=== PATIENT | male | born 1965 | race Two or more races ===

== ENCOUNTER 2018-09-20 10:37 | Outpatient (CLI) | payer OTHER ==
[~2018-09-20 10:37] MED LIST: COUMADIN7.5 MG
== END 2018-09-20 10:39 | disposition home or self-care (01) ==
LOC: NUCLEAR 10:37
DX: M81.0 Age-related osteoporosis without current pathological fracture (principal); M54.5 Low back pain

== ENCOUNTER 2019-05-21 09:51 | Outpatient (CLI) | payer OTHER | END 2019-05-21 10:01 | disposition home or self-care (01) | LOC: RAD 09:51 | DX: M54.89 Other dorsalgia (principal) ==

== ENCOUNTER 2020-11-09 08:00 | Outpatient (CLI) | payer OTHER | END 2020-11-09 08:30 | disposition home or self-care (01) | LOC: PPH VACUNA 08:00 | DX: Z23 Encounter for immunization (principal) ==

== ENCOUNTER 2021-12-16 11:55 | Outpatient (CLI) | payer OTHER | END 2021-12-16 12:05 | disposition home or self-care (01) | LOC: PPH VACUNA 11:55 | PROVIDERS: ATTEND Emergency Medicine Pediatric Emergency Medicine | DX: Z23 Encounter for immunization (principal) ==

== ENCOUNTER 2022-02-22 13:24 | Outpatient (CLI) | payer OTHER | END 2022-02-22 13:26 | disposition home or self-care (01) | LOC: NUCLEAR 13:24 | PROVIDERS: ATTEND Internal Medicine | DX: M81.0 Age-related osteoporosis without current pathological fracture (principal); Z88.0 Allergy status to penicillin; Z88.1 Allergy status to other antibiotic agents ==

== ENCOUNTER 2022-09-20 11:13 | Outpatient (CLI) | payer OTHER | END 2022-09-20 11:20 | disposition home or self-care (01) | LOC: RAD 11:13 | PROVIDERS: ATTEND Internal Medicine | DX: J32.9 Chronic sinusitis, unspecified (principal); D53.0 Protein deficiency anemia; D68.51 Activated protein C resistance; E55.9 Vitamin D deficiency, unspecified; I10 Essential (primary) hypertension; M46.28 Osteomyelitis of vertebra, sacral and sacrococcygeal region ==

== ENCOUNTER 2025-02-12 09:05 | Outpatient (CLI) | payer OTHER | END 2025-02-12 09:20 | disposition home or self-care (01) | LOC: MRI 09:05 | PROVIDERS: ATTEND Internal Medicine | DX: D53.0 Protein deficiency anemia (principal); D68.51 Activated protein C resistance; E55.9 Vitamin D deficiency, unspecified; I10 Essential (primary) hypertension; M51.06 Intervertebral disc disorders with myelopathy, lumbar region; M51.86 Other intervertebral disc disorders, lumbar region | CPT/HCPCS: 72148 ==